=== PATIENT | female | born 2000 | race Caucasian/White ===

== ENCOUNTER → 2023-01-29 | Outpatient (CLI) | payer OTHER ==
[~2023-01-29] MED LIST: Colace100 MG PO
== END ==
LOC: LAB SHORT 15:07 → LAB 15:07
DX: R30.0 Dysuria (principal)
CPT/HCPCS: 87077; 87086; 87186

== ENCOUNTER 2024-04-01 09:54 | Day surgery (SDC) | payer OTHER ==
[~2024-04-01] VITALS: Ht 157.5 cm; Wt 99.8 kg
[~2024-04-01 09:54] MED LIST changes: +BENZ1 PO; +CLOZ100 PO; +ESCI20 PO; +EUTHYROX88 MCG PO; +HYDPAM50 PO; +Lactated Ringer's 1,000 ML IV ONE; +NEXPLANON68 MG; +PRAZ1 PO; +TRAZ100 PO; +propofoL 50 ML IV ONE
[2024-04-01] MEDS ORDERED: PANT40 (10:23)
[2024-04-01] MEDS ORDERED: LINZESS290 MCG (10:24)
[2024-04-01] MEDS ORDERED: Lactated Ringer's 1,000 ML IV ONE (10:43)
[2024-04-01] MEDS ORDERED: propofoL 50 ML IV ONE (11:40)
[2024-04-01 11:55] VITALS: BP 128/88
== END 2024-04-01 11:59 | disposition home or self-care (01) ==
LOC: ORSCSDS 09:54
PROVIDERS: Internal Medicine Gastroenterology
PROC: 0DB98ZX Excision of Duodenum, Via Natural or Artificial Opening Endoscopic, Diagnostic (ICD-10-PCS; principal; 2024-04-01 11:15)
PROC: 0DBN8ZX Excision of Sigmoid Colon, Via Natural or Artificial Opening Endoscopic, Diagnostic (ICD-10-PCS; principal; 2024-04-01 11:15)
PROC: 0DBH8ZX Excision of Cecum, Via Natural or Artificial Opening Endoscopic, Diagnostic (ICD-10-PCS; principal; 2024-04-01 11:15)
PROC: 0DB68ZX Excision of Stomach, Via Natural or Artificial Opening Endoscopic, Diagnostic (ICD-10-PCS; principal; 2024-04-01 11:15)
DX: R19.4 Change in bowel habit (principal); K58.1 Irritable bowel syndrome with constipation; K63.5 Polyp of colon; D12.0 Benign neoplasm of cecum; K62.5 Hemorrhage of anus and rectum; R10.13 Epigastric pain; K21.9 Gastro-esophageal reflux disease without esophagitis; Z83.710 Family history of adenomatous and serrated polyps; R11.0 Nausea; R14.0 Abdominal distension (gaseous); E03.9 Hypothyroidism, unspecified; F41.8 Other specified anxiety disorders; F20.9 Schizophrenia, unspecified; Z79.899 Other long term (current) drug therapy
CPT/HCPCS: 88305; 88342; J2704; J7120